=== PATIENT | female | born 2005 | race African-American/Black ===

== ENCOUNTER 2024-11-17 10:41 | Emergency (ER) | payer OTHER, SELFPAY ==
--- NOTE | ~2024-11-17 | XR_ITS ---
Exam: Abdomen 1V HISTORY: constip; eval stool burden COMPARISON: None. TECHNIQUE: Supine images of the abdomen FINDINGS: Bowel gas pattern is non-obstructive. Air opacified a nondilated transverse colon is present. Fecal stasis suspected within multiple loops of small bowel as well as within the proximal descending colon. The rectum is not visualized on the current examination. Air is identified within multiple loops of bowel within the pelvis. There is no free air or deep sulci. No pathologic calcifications are seen. IMPRESSION: Nonspecific, nonobstructive bowel gas pattern as detailed above. Reviewed, dictated and finalized at location A.
[2024-11-17 10:48] VITALS: BP 132/87; RESP 16; O2SAT 100
[2024-11-17 11:03] LABS: BEDSIDEPREGUCG Negative (Negative)
[2024-11-17 11:06] LABS: Hematocrit 35.3 % (37.0-47.0); Hemoglobin 11.0 g/dL (12.0-15.0); Immature Granulocyte Percent A 0.2 % (0-0.5); Lymphocytes Absolute Auto 1.69 K/mm3 (0.9-3.2); Mean Corpuscular HGB Conc 31.2 g/dl (32-36); Mean Corpuscular Hemoglobin 24.0 pg (26-34); Mean Corpuscular Volume 76.9 fl (80-100); Nucleated Red Blood Cells Absolute Auto 0.000 K/mm3 (0.0-0.012); Nucleated Red Blood Cells Perc 0.0 % (0.0-0.2); Platelet Count Result 283 k/mm3 (150-375); Red Blood Count 4.59 M/mm3 (4.2-5.4); White Blood Count 4.3 K/mm3 (4.5-10.0)
[2024-11-17 11:12] LABS: Add Urine Microscopic? YES; Appearance Urine Cloudy (Clear); Glucose Urine UA Negative (Negative); Leukocyte Esterase Ur Negative LEU/UL (Negative); Nitrate Urine Negative (Negative); Non Pathogenic Casts 0-2; Specific Grav Ur 1.014 (1.001-1.035)
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
[2024-11-17 11:18] VITALS: PULSE 74; RESP 18; TEMP 36.6; O2SAT 99
[2024-11-17 11:26] LABS: Alanine Aminotransferase 9 U/L (6-35); Albumin Level 4.3 g/dL (3.5-5.1); Alkaline Phosphatase 67 U/L (38-126); Anion Gap 7 mmol/L (4-12); Aspartate Amino Transferase 30 U/L (14-36); Bilirubin,Total 0.3 mg/dL (0.2-1.3); Blood Urea Nitrogen 12 mg/dL (7-17); Calcium 9.4 mg/dL (8.4-10.2); Carbon Dioxide 28 mmol/L (22-30); Chloride 103 mmol/L (98-107); Estimated CRCL calculation 80 ml/min; Estimated Glomerular Filt Rate > 60; Glucose 94 mg/dL (65-110); Lipase 70 U/L (23-300); Potassium 3.9 mmol/L (3.4-5.0); Sodium 138 mmol/L (137-145); Total Protein 7.8 g/dL (6.3-8.2)
--- NOTE | 2024-11-17 11:42 | ED_ITS ---
HPI - Abdominal Pain General Chief Complaint: Abdominal Pain Stated Complaint: nausea Time Seen by Provider: 11/17/24 10:51 Source: patient Mode of arrival: ambulatory Limitations: no limitations History of Present Illness HPI narrative: 19-year-old female presents with low abdominal pain and constipation. She reports she had a bowel movement in 1 week. She took Dulcolax approximately 10 pm initially reports that she had had a bowel movement although she did have a BM while in the ED, though states output did not seem to be as much as would have thought, it was firm. She is having nausea but no vomiting. Denies any fevers or chills. She has noticed some blood on the toilet paper when she wipes and in general often has firm stools. No rectal pain now but will experience this after defecating. Previous abdominal surgeries and does not follow with a unit aide tech. Last oral intake was last night and she states her appetite has been decreased. Denies opiate/narcotic Confirm she has a primary care physician and has upcoming appointment with them. Related Data Allergies Allergy/AdvReac Type Severity Reaction Status Date / Time No Known Allergies Allergy Verified 11/17/24 10:51 [facility], [facility] Social History Social History Occupation/Education: student Additional occupation/education comments: college Exam 2 Narrative: GENERAL: Well-appearing, well-nourished, and in no acute distress. HEAD: Normocephalic, atraumatic. EYES: Non injected, non icteric ENT: Nares clear, no rhinorrhea or epistaxis. Gross auditory acuity intact. NECK: Supple. No meningismus. CHEST: Speaking in full sentences. No respiratory distress. HEART: Regular rate and rhythm. . ABDOMEN: Mildly distended but Soft. No tenderness to palpation throughout No rigidity or guarding. Not peritoneal MADHU: Performed with Mavis Castillo present as inspection clerk. No thrombosed hemorrhoids. Normal rectal tone, slightly increased in fact, making insertion of gloved finger difficult. No carol blood. Guiaic/FOBT negative. EXTREMITIES: Normal range of motion. No lower extremity edema. SKIN: Warm, dry, no rash. NEURO: No focal deficits. Alert and oriented. Answering questions. Following commands. Normal speech without aphasia or dysarthria. PSYCH: Normal mood and affect. Course Vital Signs Vital signs: Vital Signs Respiratory Rate 16 11/17/24 10:48 Blood Pressure 132/87 11/17/24 10:48 Pulse Oximetry 100 11/17/24 10:48 Oxygen Delivery Room Air 11/17/24 10:48 Temperature 97.8 F 11/17/24 11:18 Pulse Rate 74 11/17/24 11:18 Respiratory Rate 18 11/17/24 11:18 Blood Pressure 132/87 11/17/24 10:48 Pulse Oximetry 99 11/17/24 11:18 Oxygen Delivery Room Air 11/17/24 10:48 MDM - Abdominal Pain MDM Narrative Medical decision making narrative: Patient presents with report of constipation, abdominal pain and nausea. She reports her last bowel movement was approximately 1 week ago. A laxative at 10:00 p.m.. She has had a bowel movement while in the emergency department. She notes a history of having the firm hard stools with pain after defecating and occasional blood on the toilet paper when wiping. In the emergency department they are afebrile with vital signs within normal limits. Normal chemistry. Mild leukopenia. Microcytic anemia with no prior for comparison. is negative. UA cloudy but otherwise without signs of infection. Although limited sensitivity, an abdominal x-ray is ordered given otherwise a relatively benign abdominal exam and given patient's age (reasonable to defer CT at this time). This shows nonspecific pattern as below. Will discharge with combination of bowel regimen medications to include stool softener and laxative as needed and advised follow-up with return precautions. Differential Diagnosis Differential diagnosis: Likely abdominal pain, constipation, endometriosis, small bowel obstruction and other (diverticulosis; ; UTI) Lab Data Attestation: I reviewed the patient's lab results. 11/17/24 10:57 11/17/24 10:57 Labs: Lab Results 11/17/24 11/17/24 Range/Units 10:57 11:01 WBC 4.3 L (4.5-10.0) K/mm3 RBC 4.59 (4.2-5.4) M/mm3 Hgb 11.0 L (12.0-15.0) g/dL Hct 35.3 L (37.0-47.0) % MCV 76.9 L (80-100) fl MCH 24.0 L (26-34) pg MCHC 31.2 L (32-36) g/dl RDW 20.1 H (11.5-14.5) % Plt Count 283 (150-375) k/mm3 MPV 10.1 (7.4-10.4) fl Immature Gran % (Auto) 0.2 (0-0.5) % Neut % (Auto) 50.3 (45.5-73.1) % Lymph % (Auto) 39.7 (18.3-44.2) % [place] % (Auto) 7.5 (2.6-8.5) % Eos % (Auto) 1.4 (0-4.4) % Baso % (Auto) 0.9 (0.2-1.2) % Lymph # (Auto) 1.69 (0.9-3.2) K/mm3 [place] # (Auto) 0.3 (0.1-0.6) K/mm3 Eos # (Auto) 0.1 (0-0.3) K/mm3 Baso # (Auto) 0.0 (0.0-0.1) K/mm3 Abs Immat Gran (auto) 0.01 (0.00-0.031) K/mm3 Absolute Neuts (auto) 2.1 (1.3-6.7) K/mm3 Absolute Nucleated RBC 0.000 (0.0-0.012) K/mm3 Nucleated RBC % 0.0 (0.0-0.2) % Sodium 138 (137-145) mmol/L Potassium 3.9 (3.4-5.0) mmol/L Chloride 103 (98-107) mmol/L Carbon Dioxide 28 (22-30) mmol/L Anion Gap 7 (4-12) mmol/L BUN 12 (7-17) mg/dL Creatinine 0.92 (0.7-1.0) mg/dL Estim Creat Clear Calc 80 ml/min Estimated GFR > 60 (59 - ) Glucose 94 (65-110) mg/dL Calcium 9.4 (8.4-10.2) mg/dL Total Bilirubin 0.3 (0.2-1.3) mg/dL AST 30 (14-36) U/L ALT 9 (6-35) U/L Alkaline Phosphatase 67 (38-126) U/L Total Protein 7.8 (6.3-8.2) g/dL Albumin 4.3 (3.5-5.1) g/dL Lipase 70 (23-300) U/L Urine Color Yellow (Yellow) Urine Appearance Cloudy H (Clear) Urine pH 7.0 (5.0-9.0) Ur Specific [place] 1.014 (1.001-1.035) Urine Protein Negative (Negative) mg/dL Urine Glucose (UA) Negative (Negative) mg/dL Urine Ketones Negative (Negative) mg/dL Ur Blood (Man) Negative (Negative) Urine Nitrate Negative (Negative) Urine Bilirubin Negative (Negative) Urine Urobilinogen 0.2 (<2.0) mg/dL Leukocyte Esterase Rfl Negative (Negative) RAMIREZ/UL Urine RBC 0-2 (0-2) /hpf Urine WBC 0-5 (0-3) /hpf Ur Squamous Epith Cells Few (Few) /hpf Urine Bacteria None seen /hpf Urine Casts 0-2 POC Urine HCG, Qual Negative (Negative) Imaging Data Radiologist's impression: ITS Impressions Abdomen X-Ray 11/17/24 12:32 IMPRESSION: Nonspecific, nonobstructive bowel gas pattern as detailed above. Discharge Plan Discharge Clinical Impression: Leukopenia, Microcytic anemia, Constipation, Blood on toilet paper Patient Disposition: Home Condition: Stable Instructions: Antibiotic Form, Constipation (ED), Rectal Bleeding (ED), High Fiber Diet (ED), Anemia (ED) Additional Instructions: For your constipation, make sure you drink plenty of water and maintain your hydration and eat foods high in fiber. You can use a bowel regimen to include stool softeners (Metamucil/psyllium/fiber supplemented by MiraLax) and, as needed, laxative (magnesium citrate). If you continue to experience nausea, the oral disintegrating tablets of Zofran can help. Keep your upcoming appointment with your primary care physician. Return to the emergency department with any new or worsening symptoms. Patient Language: Greek Prescriptions: New ondansetron 4 mg tablet,disintegrating 4 mg PO Q8H PRN (Reason: nausea and vomiting) Qty: 7 0RF Metamucil 3.4 gram/5.4 gram powder 1 tbsp PO DAILY Qty: 660 0RF Rx Instructions: mix into at least 8 oz of water or juice before administering polyethylene glycol 3350 [Miralax] 17 gram/dose powder 17 g PO DAILY Qty: 119 0RF magnesium citrate Solution 150 ml PO DAILY PRN (Reason: constipation) Qty: 296 0RF Follow-up/Referrals: PHYSICIAN NOT ON STAFF,NONSTAFF [Primary Care Provider] - Stand Alone Forms: Work/School Release IP Time of Disposition: 13:01
[2024-11-17] MEDS: ONDANSETRON INJ 4 MG/2 ML VIAL IV PUSH (12:16)
[2024-11-17] MEDS: PSYLLIUM POWDER PACKET 1 PACKET PO (13:31)
== END 2024-11-17 13:33 | disposition home or self-care (01) ==
PROVIDERS: Emergency Provider Student in an Organized Health Care Education/Training Program
DX: K59.00 Constipation, unspecified (principal); D72.819 Decreased white blood cell count, unspecified; D50.9 Iron deficiency anemia, unspecified; K62.5 Hemorrhage of anus and rectum
CPT/HCPCS: 36415; 74018; 80053; 81001; 81025; 83690; 85025; 96374; 99284; A9270; J2405